=== PATIENT | female | born 1935 | race Caucasian/White ===

== ENCOUNTER 2017-10-17 16:21 | Emergency (ER) | payer MEDICARE, BC ==
[2017-10-17 17:24] LABS: ABS Basophils 0 10^3/ul (0-0.2); ABS Eosinophils 0.1 10^3/ul (0-0.6); ABS Lymphocytes 1.6 10^3/ul (1.0-4.8); ABS Monocytes 0.5 10^3/ul (0-0.8); ABS Neutrophils 5.3 10^3/ul (1.5-7.7); ABS Nucleated RBC 0 10^3/ul; Eosinophil % 1.6 % (0-6); Hematocrit 34 % (35-47); Hemoglobin 11.4 g/dl (12.0-16.0); Lymphocyte % 20.8 % (25-47); Mean Corpuscular HGB Conc 33 g/dl (31-36); Mean Corpuscular Hemoglobin 28 pg (27-31); Mean Corpuscular Volume 84 fL (80-97); Mean Platelet Volume 7 um3 (7.4-10.4); Nucleated Red Blood Cells % 0.1; Platelet Count 620 10^3/ul (150-450); Red Blood Count 4.09 10^6/ul (4.0-5.4); Red Cell Distribution Width 15 % (10.5-15); White Blood Count 7.5 10^3/ul (3.5-10.8)
[2017-10-17] MEDS ORDERED: Nystatin CREAM* 15 GM TUBE TOPICAL ONE (22:25)
[2017-10-17] MEDS ORDERED: Sulfamethox/Trimethoprim DS 800/160* TAB PO ONE (22:25)
[2017-10-17 22:41] LABS: Urine Appearance Cloudy; Urine Blood 3+ (Negative); Urine Color Yellow; Urine Ketones Negative (Negative); Urine Protein 2+(100 mg/dL) (Negative); Urine Specific Gravity 1.011 (1.010-1.030); Urine Urobilinogen Negative (Negative)
[2017-10-18 02:25] VITALS: BP 136/70
--- NOTE | 2017-10-24 16:03 | ED ---
Gypsy Vargas Thomas scribed for Ephraim Atkins MD on 10/17/17 at 2050 . GI/ HPI - HPI Summary HPI Summary: The patient is an 82 year old female brought in by her son with blood found in her underwear earlier today by her caregivers. The patient was evaluated by her primary care physician earlier today, although a pelvic exam was not performed. It is unclear whether the patient has vaginal or urethral bleeding. The patient denies dysuria. The patient has a history of bladder cancer. She has a history of dementia as well. - History of Current Complaint Chief Complaint: EDUrogenitalProblems Time Seen by Provider: 10/17/17 18:35 Stated Complaint: VAGINAL BLEEDING Hx Obtained From: Patient Onset/Duration: Still Present Timing: Intermittent Current Severity: Moderate Pain Intensity: 0 Associated Signs and Symptoms: Positive: Other: - Blood in underwear; NEGATIVE: dysuria Aggravating Factor(s): Nothing Alleviating Factor(s): Nothing - Additional Pertinent History Primary Care Physician: [place] [id number] - Allergy/Home Medications Allergies/Adverse Reactions: Allergies Allergy/AdvReac Type Severity Reaction Status Date / Time No Known Allergies Allergy Verified 04/13/16 09:35 PMH/Surg Hx/FS Hx/Imm Hx Endocrine/Hematology History: Denies: Hx Diabetes Cardiovascular History: Reports: Hx Hypertension Respiratory History: Reports: Hx Chronic Obstructive Pulmonary Disease (COPD) History: Reports: Other Problems/Disorders - bladder cancer Denies: Hx Dialysis Musculoskeletal History: Reports: Hx Back Problems - chronic back pain Sensory History: Reports: Hx Contacts or Glasses Denies: Hx Hearing Aid, Hx Hearing Problem Opthamlomology History: Reports: Hx Contacts or Glasses Neurological History: Reports: Hx Dementia - short term memory deficits Denies: Hx Seizures - Cancer History Cancer Type, Location and Year: Bladder cancer "long time ago, 10-15 years ago" - Surgical History Surgery Procedure, Year, and Place: Histerectomy "years ago" Infectious Disease History: No Infectious Disease History: Denies: Traveled Outside the [place] in Last 30 Days - Family History Known Family History: Positive: Other - Mother: brain aneurysm - Social History Alcohol Use: None Substance Use Type: Reports: None Smoking Status (MU): Former Smoker Type: Cigarettes Amount Used/How Often: patient's family states she smokes more than she is letting on Have You Smoked in the Last Year: No Review of Systems Negative: Fever, Chills Negative: Erythema - eyes Negative: Sore Throat Negative: Chest Pain Negative: Shortness Of Breath, Cough Negative: Abdominal Pain, Vomiting, Nausea Positive: other - Blood noted in underwear. Negative: dysuria, hematuria Negative: Myalgia, Edema Negative: Rash Neurological: Negative - dizziness All Other Systems Reviewed And Are Negative: Yes Physical Exam - Summary Physical Exam Summary: Constitutional: Well-developed, Well-nourished, Alert. (-) Distressed Skin: Warm, Dry HENT: Normocephalic; Atraumatic Eyes: Conjunctiva normal Neck: Musculoskeletal ROM normal neck. (-) JVD, (-) Stridor, (-) Tracheal deviation Cardio: Rhythm regular, rate normal, Heart sounds normal; Intact distal pulses; The pedal pulses are 2+ and symmetric. Radial pulses are 2+ and symmetric. (-) Murmur Pulmonary/Chest wall: Effort normal. (-) Respiratory distress, (-) Wheezes, (-) Rales Abd: Soft, (-) Tenderness, (-) Distension, (-) Guarding, (-) Rebound Genitourinary: I did a pelvic exam with Gustabo Taveras. There is not any sign of uterine bleeding. The patient was quite uncomfortable during the exam. There was a small amount of dried blood in her pubic region. Musculoskeletal: (-) Edema Lymph: (-) Cervical adenopathy Neuro: Alert, Oriented x3 Psych: Mood and affect Normal Triage Information Reviewed: Yes Vital Signs On Initial Exam: Initial Vitals Temp Pulse Resp BP Pulse Ox 97.8 F 93 18 143/71 99 10/17/17 16:22 10/17/17 16:22 10/17/17 16:22 10/17/17 16:22 10/17/17 16:22 Vital Signs Reviewed: Yes Diagnostics - Vital Signs Vital Signs Temp Pulse Resp BP Pulse Ox 10/17/17 19:00 79 17 124/69 95 10/17/17 18:45 79 16 138/76 96 10/17/17 16:22 97.8 F 93 18 143/71 99 - Laboratory Lab Results: Lab Results 10/17/17 10/17/17 10/17/17 Range/Units 17:00 17:00 17:00 WBC 7.5 (3.5-10.8) 10^3/ul RBC 4.09 (4.0-5.4) 10^6/ul Hgb 11.4 L (12.0-16.0) g/dl Hct 34 L (35-47) % MCV 84 (80-97) fL MCH 28 (27-31) pg MCHC 33 (31-36) g/dl RDW 15 (10.5-15) % Plt Count 620 H (150-450) 10^3/ul MPV 7 L (7.4-10.4) um3 Neut % (Auto) 70.9 (38-83) % Lymph % (Auto) 20.8 L (25-47) % Taylor % (Auto) 6.4 (0-7) % Eos % (Auto) 1.6 (0-6) % Baso % (Auto) 0.3 (0-2) % Absolute Neuts (auto) 5.3 (1.5-7.7) 10^3/ul Absolute Lymphs (auto) 1.6 (1.0-4.8) 10^3/ul Absolute Monos (auto) 0.5 (0-0.8) 10^3/ul Absolute Eos (auto) 0.1 (0-0.6) 10^3/ul Absolute Basos (auto) 0 (0-0.2) 10^3/ul Absolute Nucleated RBC 0 10^3/ul Nucleated RBC % 0.1 INR (Anticoag Therapy) 1.00 (0.77-1.02) APTT 30.3 (26.0-36.3) seconds Sodium 132 L (133-145) mmol/L Potassium 4.3 (3.5-5.0) mmol/L Chloride 103 (101-111) mmol/L Carbon Dioxide 21 L (22-32) mmol/L Anion Gap 8 (2-11) mmol/L BUN 44 H (6-24) mg/dL Creatinine 2.98 H (0.51-0.95) mg/dL Est GFR ( Amer) 19.3 (>60) Est GFR (Non-Af Amer) 15.0 (>60) BUN/Creatinine Ratio 14.8 (8-20) Glucose 98 (70-100) mg/dL Calcium 10.3 (8.6-10.3) mg/dL Total Bilirubin 0.30 (0.2-1.0) mg/dL AST 9 L (13-39) U/L ALT 7 (7-52) U/L Alkaline Phosphatase 67 (34-104) U/L Total Protein 9.1 H (6.4-8.9) g/dL Albumin 3.8 (3.2-5.2) g/dL Globulin 5.3 H (2-4) g/dL Albumin/Globulin Ratio 0.7 L (1-3) Result Diagrams: 10/17/17 17:00 10/17/17 17:00 Lab Statement: Any lab studies that have been ordered have been reviewed, and results considered in the medical decision making process. Re-Evaluation - Re-Evaluation First Eval Re-Evaluation Time: 22:31 Change: Unchanged Comment: She appears to have intertriginous erythema. Her skin is shiny. I cannot rule out Leona. We will start some nystatin cream. Urinalysis and culture pending at the time of discharge. Because the urine is cloudy, I will start empirically on antibiotics. The patient will be discharged G[facility]U Course/Dx - Course Assessment/Plan: The patient is an 82 year old female brought in by her son with blood found in her underwear earlier today by her caregivers. Bloodwork was obtained. In the pelvic exam, there is no sign of uterine bleeding. The patient will be discharged with follow up with Dr. Nieto in 2-3 days. She is diagnosed with hematuria and Intertrigo. - Diagnoses Provider Diagnoses: Hematuria, Intertrigo Discharge - Discharge Plan Condition: Stable Disposition: HOME Prescriptions: Nystatin CREAM* [Nystatin Cream*] 1 applic TOPICAL TID #1 tube Sulfamethox/Trimethoprim DS* [Bactrim DS 800/160 TAB*] 1 tab PO BID #14 tab Patient Education Materials: Hematuria (ED) Referrals: Cholo Rivas MD [Medical Doctor] - 2 Days Additional Instructions: Follow up with Dr. Rivas in 2-3 days. Return to the emergency department for any new or worsening symptoms. The documentation as recorded by the Gypsy nathan Thomas accurately reflects the service I personally performed and the decisions made by , Ephraim Atkins MD.
== END 2017-10-17 23:20 | disposition home or self-care (01) ==
LOC: ED 16:21
DX: R31.9 Hematuria, unspecified (principal); L30.4 Erythema intertrigo; Z87.891 Personal history of nicotine dependence
CPT/HCPCS: 36415; 80053; 81003; 81015; 85025; 85610; 85730; 87086; 99284; A9270-GY